=== PATIENT | male | born 1955 | race Caucasian/White ===

== ENCOUNTER 2017-07-24 02:38 | Emergency (ER) | payer MEDICAID ==
--- NOTE | 2017-07-24 03:05 | ER Document Report ---
ED General - General TRAVEL OUTSIDE OF THE [place] IN LAST 30 DAYS: No <JACQUELIN GARCIA - Last Filed: 07/24/17 03:00> <MARIO SEQUEIRA - Last Filed: 07/24/17 08:30> - General Stated Complaint: CHEST PAIN Time Seen by Provider: 07/24/17 03:00 - HPI Notes: 61-year-old male with history of coronary artery disease status post stenting with Dr. Cruz from [place] following his cardiac care. Also has a history of diabetes hyperlipidemia tobacco abuse, appendectomy with last stress test apparently approximately 1 year ago. Patient presents with nearly 3 days of constant pain that he states started in his midsternal chest region where he has noted a knot that he has not noted before. States since then it has slightly radiated outward and including the epigastric area. Patient awoke with the symptoms initially. He has some shortness of breath. Denies nausea or vomiting. Pain is sharp in character. Pain became so severe tonight that he cannot wait to go see his heart doctor tomorrow. He has used a little bit of nitroglycerin at home but he states he does not use her right and noted no improvement. He did have improvement with the nitroglycerin he received by EMS. He is on Plavix and has taken that already. PCP is [facility]. (JACQUELIN GARCIA) - Related Data Allergies/Adverse Reactions: No Known Allergies Allergy (Unverified 10/25/12 03:58) Past Medical History - Social History Smoking Status: Current Every Day Smoker Family History: Reviewed & Not Pertinent - Past Medical History Cardiac Medical History: Reports: Hx Coronary Artery Disease, Hx Hypercholesterolemia, Hx Hypertension Denies: Hx Heart Attack GI Medical History: Reports: Hx Gastroesophageal Reflux Disease Traumatic Medical History: Reports: Hx Fractures - BOTH FOREARMS, RIBS Past Surgical History: Reports: Hx Appendectomy, Hx Cardiac Catheterization - stent x3, Hx Coronary Stent - TOTAL OF THREE, GOT TWO STENTS 2 DAYS AGO., Hx Orthopedic Surgery - ORIF BOTH FOREARMS. - Immunizations Hx Diphtheria, Pertussis, Tetanus Vaccination: Yes - < 5 years <JACQUELIN GARCIA - Last Filed: 07/24/17 03:00> Review of Systems - Review of Systems -: Yes All other systems reviewed and negative <JACQUELIN GARCIA - Last Filed: 07/24/17 03:00> Physical Exam - General General appearance: Appears well, Alert - HEENT Head: Normocephalic, Atraumatic Eyes: Normal Pupils: PERRL - Respiratory Respiratory status: No respiratory distress Chest status: Nontender Breath sounds: Normal Chest palpation: Normal - Cardiovascular Rhythm: Regular Heart sounds: Normal auscultation Murmur: No - Abdominal Inspection: Normal Distension: No distension Bowel sounds: Normal Tenderness: Nontender Organomegaly: No organomegaly - Back Back: Normal, Nontender - Extremities General upper extremity: Normal inspection, Nontender, Normal color, Normal ROM , Normal temperature General lower extremity: Normal inspection, Nontender, Normal color, Normal ROM , Normal temperature, Normal weight bearing. No: Moisés's sign - Neurological Neuro grossly intact: Yes Cognition: Normal Orientation: AAOx4 [place] Coma Scale Eye Opening: Spontaneous [place] Coma Scale Verbal: Oriented [place] Coma Scale Motor: Obeys Commands [place] Coma Scale Total: 15 Speech: Normal Motor strength normal: LUE, RUE, LLE, RLE Sensory: Normal - Psychological Associated symptoms: Normal affect, Normal mood - Skin Skin Temperature: Warm Skin Moisture: Dry Skin Color: Normal <JACQUELIN GARCIA - Last Filed: 07/24/17 03:00> <MARIO SEQUEIRA - Last Filed: 07/24/17 08:30> - Vital signs Vitals: Resp Pulse Ox 31 H 95 07/24/17 02:42 07/24/17 02:42 Notes: See nurse's note (JACQEULIN GARCIA) - Notes Notes: Physical Exam: GENERAL: VS as per nursing doc. Well-appearing, well-nourished and in no acute distress. HEAD: Atraumatic, normocephalic. EYES: Pupils equal round and reactive to light, extraocular movements intact, sclera anicteric, no conjunctival injection or discharge. ENT: Nares patent, oropharynx clear without exudates. Moist mucous membranes. NECK: Normal range of motion, supple without lymphadenopathy. No JVD. No Carotid Bruits. LUNGS: Breath sounds clear to auscultation bilaterally and equal, coarse. No wheezes rales or rhonchi. HEART: Normal S1S2. Regular rate and rhythm without murmurs. Equal peripheral pulses. ABDOMEN: Soft, moderate epigastric tenderness which extends to the prominent xiphoid and lower chest tenderness. No pulsatile mass. No Brown sign. EXTREMITIES: Normal range of motion. No calf tenderness. Negative Homans. No edema. NEUROLOGICAL: Cranial nerves grossly intact. Normal speech. Normal sensory and motor exams. No gross cerebellar abnormalities. PSYCH: Normal mood, normal affect. SKIN: Warm, dry, no cyanosis, no splinter hemorrhages. Cap refill < 2 sec. (JACQUELIN GARCIA) Course - EKG Interpretation by Ut EKG shows normal: Sinus rhythm - Rate 79, no clear ischemic changes. QRS is normal. Normal intervals. <JACQUELIN GARCIA - Last Filed: 07/24/17 03:00> - Laboratory Result Diagrams: 07/24/17 03:28 07/24/17 04:30 <MARIO SEQUEIRA - Last Filed: 07/24/17 08:30> - Re-evaluation Re-evalutation: 07/24/17 07:44 Patient is alert and oriented. He is afebrile. He is sitting up in bed no acute distress. He has placed his oxygen back on and his pulse ox is at 93%. I did go over CT results including the AAA which he knew he had. I also told him about his duodenitis and his pancreatitis and the need to stop smoking and drinking. I told him to follow-up with gastroenterology and I referred him to . He did state he thought he saw one in [place] but has not been in quite some time. Is to return to the emergency department immediately if he has fevers or intractable vomiting as I discussed with him. 07/24/17 07:47 (MARIO SEQUEIRA) - Vital Signs Vital signs: Temp Pulse Resp BP Pulse Ox 98.0 F 20 139/84 H 95 07/24/17 07:45 07/24/17 06:01 07/24/17 06:00 07/24/17 06:01 - Laboratory Laboratory results interpreted by mt: 07/24/17 07/24/17 03:28 04:30 WBC 13.0 H Lymphocytes % 10.2 L Absolute Neutrophils 9.8 H Chloride 97 L Carbon Dioxide 32 H Glucose 147 H Calcium 10.6 H Lipase 488.6 H - Diagnostic Test Radiology results interpreted by mt: 07/24/17 07:26 CT revealed abdominal aortic aneurysm 3.5 x 3.7 twelve-month follow-up recommended. It also showed mild duodenitis and pancreatitis. I did tell the patient to refrain from tobacco as he smokes 6 cigarettes a day still and also to refrain from alcohol as he states he drinks alcohol although he would not quantify the amount. Patient is to follow-up with his primary medical doctor as we discussed. He is also not to take his metformin until July 26 at 7 AM due to having IV contrast. Patient was discharged home with a paper stating this and discussed it with him. Patient refused to wear his oxygen throughout his stay in the emergency department while I was present. He states he does not use it at home. He states he also does really take his medications except for his heart medications. Patient is pulse oxing 90% on room air he is alert and oriented. (MARIO SEQUEIRA) Discharge <JACQUELIN GARCIA - Last Filed: 07/24/17 03:00> <MARIO SEQUEIRA - Last Filed: 07/24/17 08:30> - Discharge Clinical Impression: Pancreatitis, Abdominal aortic aneurysm (AAA) 3.0 cm to 5.5 cm in diameter in male, Duodenitis Condition: Stable Disposition: HOME, SELF-CARE Instructions: Pancreatitis (OM) Additional Instructions: You cannot take your metformin until July 26 at 0700 am. Your aorta is mildly enlarged and should be monitored on an annual basis. Please follow up with your primary medical doctor to get this done. His refrain from tobacco and alcohol as your pancreas is mildly inflamed and this will only aggravate it. Please follow-up with your primary medical doctor for further evaluation regarding this as well. Return to the emergency department if you have high fevers, intractable vomiting, intractable pain or any other concerns. Please follow-up with the signalman as we discussed. He will need further evaluation of your duodenitis or inflammation of the first portion of your intestines as we discussed. Forms: Smoking Cessation Education Referrals: PRINCE HALE MD [ACTIVE STAFF] - Follow up in 3-5 days ELIEZER VILLEGAS MD [NO LOCAL MD] - Follow up as needed
[2017-07-24] MEDS ORDERED: ONDANSETRON HCL INJ/PF 4 MG/2 ML SDV IV ONE (03:06)
[2017-07-24] MEDS ORDERED: NITROGLYCERIN 2% OINTMENT 1 GM PACKET TP ONE (03:06)
[2017-07-24] MEDS ORDERED: MORPHINE SULFATE 10 MG/ML INJ IV ONE ×2 (03:06→05:53)
--- NOTE | 2017-07-24 03:27 | RADIOLOGY REPORT (SQ) ---
EXAM DESCRIPTION: CHEST SINGLE VIEW CLINICAL HISTORY: 61 years, Male, CP COMPARISON: 08/14/2015 FINDINGS: Normal lung volume, clear parenchyma, normal cardiac silhouette, and mild chronic deformity of posterior right sixth and seventh ribs suggestive of old injury. IMPRESSION: No acute cardiopulmonary findings. 2011 [employer]- All Rights Reserved
[2017-07-24 03:41] LABS: ABSOLUTE BASOPHILS # (AUTO) 0.1 10^3/uL (0.0-0.2); ABSOLUTE EOSINOPHILS # (AUTO) 0.4 10^3/uL (0.0-0.6); ABSOLUTE LYMPHOCYTES (AUTO) 1.3 10^3/uL (0.5-4.7); ABSOLUTE MONOCYTES (AUTO) 1.4 10^3/uL (0.1-1.4); ABSOLUTE NEUT (AUTO) 9.8 10^3/uL (1.7-8.2); BASOPHILS % (AUTO) 0.4 % (0-2); EOSINOPHILS % (AUTO) 2.8 % (0-6); HEMATOCRIT 47.9 % (37.9-51.0); HEMOGLOBIN 15.9 g/dL (13.5-17.0); LYMPHOCYTES % (AUTO) 10.2 % (13-45); MEAN CORPUSCULAR HGB CONC 33.3 g/dL (32.0-36.0); MEAN CORPUSCULAR VOLUME 93 fl (80-97); MONOCYTES % (AUTO) 11.1 % (3-13); PLATELET COUNT 193 10^3/uL (150-450); RED BLOOD COUNT 5.13 10^6/uL (4.35-5.55); RED CELL DISTRIBUTION WIDTH 13.7 % (11.5-14.0); SEGMENTED NEUTROPHILS % (AUTO) 75.5 % (42-78); TOTAL CELLS COUNTED % (AUTO) 100 %
[2017-07-24 05:12] LABS: ALANINE AMINOTRANSFERASE 30 U/L (21-72); ALBUMIN 4.6 g/dL (3.5-5.0); ALKALINE PHOSPHATASE 101 U/L (38-126); ANION GAP 11 (5-19); ASPARTATE AMINO TRANSFERASE 18 U/L (17-59); BILIRUBIN,DIRECT 0.3 mg/dL (0.0-0.4); BILIRUBIN,TOTAL 0.8 mg/dL (0.2-1.3); BLOOD UREA NITROGEN 13 mg/dL (7-20); CALCIUM 10.6 mg/dL (8.4-10.2); CARBON DIOXIDE 32 mmol/L (22-30); CHLORIDE 97 mmol/L (98-107); CREATINE KINASE 101 U/L (55-170); GLUCOSE 147 mg/dL (75-110); LIPASE 488.6 U/L (23-300); POTASSIUM 4.7 mmol/L (3.6-5.0); SODIUM 139.7 mmol/L (137-145); TOTAL PROTEIN 7.3 g/dL (6.3-8.2)
[2017-07-24 05:23] LABS: CREATINE KINASE MB 1.18 ng/mL (<4.55)
[2017-07-24 05:26] LABS: TROPONIN I < 0.012 ng/mL
--- NOTE | 2017-07-24 07:21 | RADIOLOGY REPORT (SQ) ---
EXAM DESCRIPTION: CT ABD/PELVIS WITH IV ONLY CLINICAL HISTORY: 61 years Male, Epigastric pain, Pancreatitis COMPARISON: None. TECHNIQUE: 100 mL Isovue-370 IV contrast. Coronal and sagittal reformat. This exam was performed according to our departmental dose-optimization program, which includes automated exposure control, adjustment of the mA and/or kV according to patient size and/or use of iterative reconstruction technique. FINDINGS: Mild fat stranding surrounds the pancreatic head. No significant free fluid. Mild third portion duodenitis. Infrarenal abdominal aortic aneurysm measures 3.5 x 3.7 cm; follow-up recommended every 12 months. Small right middle lobar atelectasis or scar. Moderate coronary artery calcification-stenting. Mild hepatic steatosis. Likely 1.7 cm right adrenal adenoma. Bilateral nephrolithiasis measuring up to 0.6 cm on the right. Subcentimeter likely benign bilateral renal cysts not definitively characterized. Moderate colonic diverticulosis. 5.1 cm diameter prostate. Atherosclerosis. Inferior thorax, gallbladder, spleen, left adrenal gland, gastrointestinal tract, pelvic organs, lymphatics, vasculature, and musculoskeleton appear otherwise unremarkable. IMPRESSION: 1. Mild pancreatitis/duodenitis pattern. 2. A 3.7 cm abdominal aortic aneurysm; follow-up recommended every 12 months.
[2017-07-24 08:35] VITALS: BP 130/82
--- NOTE | 2017-07-24 08:42 | ER Document Report ---
Doctor's Note Notes: 07/24/17 08:41 I did go back in the room to speak to the patient one more time as he requested my presence. I did go over the fact that he should not be drinking or smoking anymore because this can aggravate both his duodenitis and pancreatitis. He stated that he loves himself cigarette ended bigger and he will continue to do so. Patient also called his primary medical providers stupid. I did look through his notebook earlier to see if he had seen a academic manager and could not find a card for one although he did seem quite organized and did have cards for a lot of other specialties. So I did tell him I will refer him to a academic manager. Patient verbalized understanding. He was discharged home in stable condition.
--- NOTE | 2017-07-24 17:06 | EKG REPORT ---
SEVERITY:- BORDERLINE ECG - SINUS RHYTHM PROBABLE LEFT ATRIAL ABNORMALITY : Confirmed by: Jacob Felder 24-Jul-2017 17:05:32
== END 2017-07-24 08:53 | disposition home or self-care (01) ==
LOC: ER 02:38
DX: K85.90 Acute pancreatitis without necrosis or infection, unspecified (principal); I71.4 Abdominal aortic aneurysm, without rupture; K29.80 Duodenitis without bleeding; R07.9 Chest pain, unspecified; F17.210 Nicotine dependence, cigarettes, uncomplicated; I25.10 Atherosclerotic heart disease of native coronary artery without angina pectoris; E78.00 Pure hypercholesterolemia, unspecified; I10 Essential (primary) hypertension
CPT/HCPCS: 93005; 96376; 99285; 96374; 96375; 36415; 82553; 82550; 83690; 85025; 80053; 84484; 71045; 74177; 93010; J3490; J2270; J2405